=== PATIENT | female | born 1990 | race Asian ===

== ENCOUNTER 2018-09-01 17:09 | Emergency (ER) | payer SELFPAY ==
[~2018-09-01] VITALS: Ht 165.1 cm; Wt 50.0 kg
[2018-09-01] MEDS ORDERED: IBUPROFEN 600MG TABLET PO ONE (19:00)
[2018-09-01 20:34] VITALS: BP 118/65
== END 2018-09-01 20:35 | disposition home or self-care (01) ==
LOC: ER 17:09
DX: S90.31XA Contusion of right foot, initial encounter (principal); F17.200 Nicotine dependence, unspecified, uncomplicated; W20.8XXA Other cause of strike by thrown, projected or falling object, initial encounter; Y93.89 Activity, other specified; Y92.89 Other specified places as the place of occurrence of the external cause; Y99.8 Other external cause status
CPT/HCPCS: 73630; 99283